=== PATIENT | female | born 1965 | race African-American/Black ===

== ENCOUNTER 2019-10-07 18:45 | Outpatient (CLI) | payer OTHER, SELFPAY ==
[2019-10-07 19:45] VITALS: BP 142/84; PULSE 115
[2019-10-07] MEDS: BETAMETHASONE SOD PHOS/ACETATE 30 MG/5 ML VIAL 12 MG IM (19:50)
== END 2019-10-07 19:50 | disposition home or self-care (01) ==
LOC: ANHOUTPT 20:16 → ANHLDR 10-10 15:16 → ANHOBOP 10-10 15:16
PROVIDERS: Visit Provider Student in an Organized Health Care Education/Training Program
DX: O26.893 Other specified pregnancy related conditions, third trimester (principal); R03.0 Elevated blood-pressure reading, without diagnosis of hypertension; O09.513 Supervision of elderly primigravida, third trimester; Z3A.30 30 weeks gestation of pregnancy
CPT/HCPCS: 59025; 96372; J0702

== ENCOUNTER 2019-10-07 18:45 | Outpatient (NON) | payer OTHER, SELFPAY ==
[2019-10-07 19:08] VITALS: BMI 32.1
[2019-10-07 19:23] LABS: Collection Time Urine 24 HOURS
[2019-10-07 19:28] LABS: Total Volume 24 Hour Urine 1200 ml
[2019-10-07 19:41] LABS: Creatinine Clearance Urine 138.6 ml/min (75-125); Creatinine Urine 106.3 mg/dL; Patient Weight 180 Lbs; Total Protein Urine 24 Hr 96 MG/DAY (28-141); Total Protein Urine Random 8 mg/dL
== END 2019-10-07 18:46 ==
PROVIDERS: Visit Provider Student in an Organized Health Care Education/Training Program
DX: O13.9 Gestational [pregnancy-induced] hypertension without significant proteinuria, unspecified trimester (principal); Z3A.00 Weeks of gestation of pregnancy not specified
CPT/HCPCS: 81050; 82575; 84156

== ENCOUNTER 2019-10-20 12:23 | Outpatient (RCR) | payer OTHER, SELFPAY ==
[2019-10-17 18:27] VITALS: BP 138/85; PULSE 97
[2019-10-20 13:08] VITALS: BP 137/86; PULSE 100
== END 2019-10-28 10:16 | disposition home or self-care (01) ==
LOC: ANHOBOP 12:23
PROVIDERS: Visit Provider Student in an Organized Health Care Education/Training Program
DX: O09.513 Supervision of elderly primigravida, third trimester (principal); Z3A.32 32 weeks gestation of pregnancy; O16.3 Unspecified maternal hypertension, third trimester; Z3A.33 33 weeks gestation of pregnancy
CPT/HCPCS: 59025